=== PATIENT | female | born 1970 | race African-American/Black ===

== ENCOUNTER 2017-05-29 06:09 | Emergency (ER) | payer BC ==
--- NOTE | ~2017-05-29 | EKG ---
PATIENT: DEVORAH MAK UNIT #: [id number] Ventricular Rate: 71 BPM Atrial Rate: 71 BPM P-R Interval: 162 ms QRS Duration: 78 ms Q-T Interval: 378 ms QTC Calculation(Bezet): 410 ms P [place]: 45 degrees Calculated R [place]: 82 degrees Calculated T [place]: 55 degrees Diagnosis Line: Normal sinus rhythm with sinus arrhythmia Diagnosis Line: Normal ECG Diagnosis Line: No previous ECGs available Diagnosis Line: Confirmed by SURESH GRADY MD ([id number]) on Diagnosis Line: 05/30/2017 8:18:23 PM INTERPRETING MD: ROGELIO
--- NOTE | ~2017-05-29 | EKG ---
PATIENT: DEVORAH MAK UNIT #: [id number] Ventricular Rate: 59 BPM Atrial Rate: 59 BPM P-R Interval: 160 ms QRS Duration: 80 ms Q-T Interval: 412 ms QTC Calculation(Bezet): 407 ms P [place]: 25 degrees Calculated R [place]: 101 degrees Calculated T [place]: 49 degrees Diagnosis Line: Sinus bradycardia Diagnosis Line: Rightward axis Diagnosis Line: Borderline ECG Diagnosis Line: When compared with ECG of 29-MAY-2017 06:13, Diagnosis Line: (unconfirmed) Diagnosis Line: No significant change was found Diagnosis Line: Confirmed by SURESH GRADY MD ([id number]) on Diagnosis Line: 05/30/2017 8:19:18 PM INTERPRETING MD: ROGELIO
--- NOTE | ~2017-05-29 | CR72 ---
[facility] A Service of [facility] RADIOLOGY TEXT RESULTS PATIENT: DEVORAH MAK LOCATION: [place] : 72 UNIT #: [id number] AGE: [address]: Milan Farnsworth MD SEX: F ORDER DR: [id number] [facility] [address] [place], [place] [address] [id number] MR#: [id number] Acc #: [id number] NAME: DEVORAH MAK : 1970 SEX: F STUDY DATE/TIME: 05/29/2017 7:28 UNIT: [facility] ROOM: STUDY DESCRIPTION: CR Chest Single View Portable Attending Physician: Milan Farnsworth M.D. Ordering Physician: Milan Farnsworth M.D. Primary Care Physician: Primary Care Physician No MEDICAL IMAGING REPORT This report is preliminary unless electronic signature is present EXAM Chest x-ray portable HISTORY Chest pain, short of air started this morning. Patient is diabetic and has essential hypertension. COMMENT Single frontal portable view of the chest timed 07:28 on 05/29/2017 is compared to 11/08/2012. Mild cardiac silhouette enlargement is increased from prior and there is now mild vascular congestion and interstitial edema and the findings are concerning for mild congestive failure. There is no pleural effusion or pneumothorax appreciated. IMPRESSION Findings are concerning for the interval development of mild congestive failure with interval increase in cardiac silhouette size and interval development of vascular congestion and interstitial edema. Clinical correlation and followup recommended. Dictated by... Elmira Figueroa M.D. THIS IS AN ELECTRONICALLY VERIFIED REPORT Elmira Figueroa M.D. at 05/30/2017 7:51 AM KAY/torie TD: 05/29/2017 16:34 JOB #: [id number] MEDICAL IMAGING REPORT [facility] A Service [facility] RADIOLOGY TEXT RESULTS PATIENT: DEVORAH MAK LOCATION: [facility] : 72 UNIT #: [id number] AGE: [address]: Milan Farnsworth MD SEX: F ORDER DR: Page 1 of 1 COPY
[~2017-05-29 06:09] MED LIST: DIFLUCAN PO; PEN-VEE K PO; QNASL8.7 GM NS; ROBITUSSIN A-C S5 ML PO; ZYRTEC10 M1 PO; [UNRECOGNIZED DRUG - OTHER] PO
[2017-05-29 08:12] LABS: BASOPHIL% 0.6 % (0-2.5); EOSINOPHIL% 0.9 % (0.0-7.0); HEMATOCRIT 40.2 % (35.0-45.0); HEMOGLOBIN 12.8 gm/dL (12.0-16.0); LYMPHOCYTE# 1.8 X10e3 (1.0-3.5); LYMPHOCYTE% 36.6 % (17.0-45.0); MEAN CELL VOLUME 79.6 FL (83-96); MEAN CORPUSCULAR HEMOGLOBIN 25.3 PG (28-34); MEAN CORPUSCULAR HGB CONC 31.7 g/dL (30-36); MEAN PLATELET VOLUME 8.6 FL (6.5-11.5); MONOCYTE# 0.5 X10e3 (0-1.0); NEUTROPHIL# 2.5 X10e3 (1.5-7.1); NEUTROPHIL% 51.9 % (40-75); PLATELET COUNT 297 X10e3 (140-420); RED BLOOD COUNT 5.05 X10e (3.90-5.30); RED CELL DISTRIBUTION WIDTH 13.4 % (11.0-15.5); WHITE BLOOD COUNT 4.9 X10e3 (4.0-10.5)
[2017-05-29 08:15] LABS: DIFF IND NO
[2017-05-29 08:30] LABS: PARTIAL THROMBOPLASTIN TIME 24.8 SECONDS (23.5-31.3); PROTHROMBIN TIME (PATIENT) 10.5 SECONDS (10.0-11.7)
[2017-05-29 08:40] LABS: ALBUMIN SERUM 3.3 g/dL (3.5-5.0); ALKALINE PHOSPHATASE 62 U/L (32-92); ALT (SGPT) 26 U/L (10-40); AST (SGOT) 17 U/L (10-42); BILIRUBIN,TOTAL 0.3 mg/dL (0.2-2.0); BLOOD UREA NITROGEN 13 mg/dL (9-23); BUN/CREATININE RATIO 18.57; CALCIUM SERUM 8.8 mg/dL (8.4-10.2); CARBON DIOXIDE 21 mmol/L (22-31); CHLORIDE 106 mmol/L (100-111); CREATININE SERUM 0.7 mg/dL (0.6-1.4); GLOM FILT RATE Estimated 121.3 mL/min (>60); GLUCOSE FASTING 221 mg/dL (70-110); POTASSIUM 3.8 mmol/L (3.5-5.1); PROTEIN TOTAL SERUM 6.7 g/dL (6.0-8.3); SODIUM 138 mmol/L (135-145)
[2017-05-29 08:41] LABS: BILIRUBIN, DIRECT <0.1 mg/dL (0.0-0.2); BILIRUBIN,INDIRECT 0.2 mg/dL (0.0-0.9)
[2017-05-29 08:55] LABS: POC - CKMB <1.0 ng/mL (0.0-7.9); POC - TROPONIN <0.05 ng/mL (<=0.05)
== END 2017-05-29 09:13 | disposition home or self-care (01) ==
LOC: CED 06:09
PROVIDERS: Emergency Medicine
DX: K21.9 Gastro-esophageal reflux disease without esophagitis (principal); E11.9 Type 2 diabetes mellitus without complications; J45.909 Unspecified asthma, uncomplicated; Z88.2 Allergy status to sulfonamides
CPT/HCPCS: 36415; 71010; 80048; 80076; 82553; 84484; 85025; 85610; 85730; 93005; 99285